=== PATIENT | male | born 1930 | race African-American/Black ===

== ENCOUNTER 2018-04-08 09:17 | Inpatient (IN) ==
[2018-04-08 10:13] LABS: Basophils % 0.4 % (0.0-0.8); Eosinophils % 0.1 % (0.00-10.9); Hematocrit 29.1 VOL% (42.0-52.0); Hemoglobin 9.3 GM/DL (14.0-18.0); Immature Granulocytes % 0.4 %; Immature Granulocytes Absolute 0.03 #; Lymphocytes # 0.8 10*3/uL (1.4-4.0); Mean Corpuscular Hemoglobin 28 PG (27-34); Mean Corpuscular Volume 86.4 FL (87-102); Monocytes # 0.9 10*3/uL (0.11-0.8); Monocytes % 11.5 % (1.7-12.7); Neutrophils % 77.6 % (38.7-73.9); Platelet Count 155 T/CUMM (130-400); Red Blood Count 3.37 MC/CUMM (3.8-5.5); Red Cell Distribution Width 16.6 % (9.3-17.3); White Blood Count 7.7 T/CUMM (4-12)
[2018-04-08 10:27] LABS: INR 1.2; PT Patient Result 12.4 SECS; Partial Thromboplastin Time 29.1 SECS (0-40)
[2018-04-08 10:42] LABS: Albumin 3.2 G/DL (3.4-5.0); Bilirubin,Total 0.8 MG/DL (0.2-1.0); Calcium 8.7 MG/DL (8.5-10.1); Osmolality,Calculated 297.5 MOS/KG (273-304); Potassium 5.5 MMOL/L (3.5-5.1); Total Protein 8.2 G/DL (6.4-8.3)
[2018-04-08] MEDS ORDERED: ASPIRIN 325 MG TABLET PO STA (11:00)
[2018-04-08] MEDS ORDERED: NITROGLYCERIN 2% OINT 1 INCH/GM PACK TOP STA (11:00)
[2018-04-08] MEDS ORDERED: ENOXAPARIN 100 MG/ML SYRINGE SUBCUT STA (11:00)
[2018-04-08] MEDS ORDERED: MORPHINE 4 MG/1 ML VIAL IV PRN (12:20)
[2018-04-08] MEDS ORDERED: MAGNESIUM SULF RIDER 4 GM in PREMIX 1 EACH IV PRN (12:21)
[2018-04-08] MEDS ORDERED: DOCUSATE SODIUM 100 MG CAPSULE PO PRN (12:21)
[2018-04-08] MEDS ORDERED: ONDANSETRON 4 MG/2 ML VIAL IV PRN ×2 (12:21→14:20)
[2018-04-08] MEDS ORDERED: ACETAMINOPHEN 325 MG TABLET PO PRN (12:21)
[2018-04-08] MEDS ORDERED: MAGNESIUM SULF RIDER 2 GM in PREMIX 1 EACH IV PRN (12:21)
[2018-04-08] MEDS: FUROSEMIDE 40 MG/4 ML VIAL IV SCH (15:36)
[2018-04-08] MEDS: cefTRIAXone 1,000 MG in SYRINGE 1 EACH IV SCH (15:54)
[2018-04-08] MEDS: hydrALAZINE 10 MG TABLET PO SCH ×2 (16:12→21:19)
[2018-04-08] MEDS: PANTOPRAZOLE 40 MG TABLET PO SCH (16:12)
[2018-04-08] MEDS: NITROGLYCERIN 2% OINT 1 INCH/GM PACK TOP SCH (17:39)
[2018-04-08] MEDS ORDERED: DOCUSATE SODIUM 100 MG CAPSULE PO SCH (21:00)
[2018-04-08] MEDS: ATORVASTATIN 40 MG TABLET PO SCH (21:19)
[2018-04-08] MEDS: CLOPIDOGREL 75 MG TABLET PO SCH (21:19)
[2018-04-08] MEDS: CARVEDILOL 6.25 MG TABLET PO SCH (21:19)
[2018-04-09] MEDS: NITROGLYCERIN 2% OINT 1 INCH/GM PACK TOP SCH ×4 (01:16→17:35)
[2018-04-09 04:15] LABS: Basophils % 0.4 % (0.0-0.8); Eosinophils % 0.3 % (0.00-10.9); Hematocrit 27.2 VOL% (42.0-52.0); Hemoglobin 8.4 GM/DL (14.0-18.0); Immature Granulocytes % 0.5 %; Immature Granulocytes Absolute 0.04 #; Lymphocytes # 0.8 10*3/uL (1.4-4.0); Lymphocytes % 9.9 % (21.2-54.2); Mean Corpuscular HGB Conc 30.9 GM/DL (32-36); Mean Corpuscular Hemoglobin 27 PG (27-34); Mean Corpuscular Volume 86.1 FL (87-102); Mean Platelet Volume 10.9 FL (9.6-12.0); Monocytes % 12.3 % (1.7-12.7); Neutrophils % 76.6 % (38.7-73.9); Platelet Count 128 T/CUMM (130-400); Red Blood Count 3.16 MC/CUMM (3.8-5.5); Red Cell Distribution Width 16.2 % (9.3-17.3); White Blood Count 7.8 T/CUMM (4-12)
[2018-04-09 04:34] LABS: Calcium 8.2 MG/DL (8.5-10.1); Osmolality,Calculated 304.1 MOS/KG (273-304); Potassium 4.6 MMOL/L (3.5-5.1)
[2018-04-09] MEDS: ISOSORBIDE MONONITRATE 60 MG TABLET PO SCH (08:56)
[2018-04-09] MEDS: FUROSEMIDE 40 MG/4 ML VIAL IV SCH ×2 (08:56→15:42)
[2018-04-09] MEDS: hydrALAZINE 10 MG TABLET PO SCH ×3 (08:57→21:15)
[2018-04-09] MEDS: PANTOPRAZOLE 40 MG TABLET PO SCH (08:57)
[2018-04-09] MEDS: ASPIRIN EC 81 MG TABLET PO SCH (08:57)
[2018-04-09] MEDS: CARVEDILOL 6.25 MG TABLET PO SCH ×2 (08:57→21:15)
[2018-04-09] MEDS ORDERED: PANTOPRAZOLE 40 MG TABLET PO SCH (09:00)
[2018-04-09] MEDS: ENOXAPARIN 60 MG/0.6 ML SYRINGE SUBCUT SCH (11:57)
[2018-04-09] MEDS: cefTRIAXone 1,000 MG in SYRINGE 1 EACH IV SCH (15:45)
[2018-04-09] MEDS: ATORVASTATIN 40 MG TABLET PO SCH (21:15)
[2018-04-09] MEDS: CLOPIDOGREL 75 MG TABLET PO SCH (21:15)
[2018-04-10] MEDS: NITROGLYCERIN 2% OINT 1 INCH/GM PACK TOP SCH ×2 (01:17→05:00)
[2018-04-10 02:45] LABS: Basophils % 0.3 % (0.0-0.8); Eosinophils # 0.1 10*3/uL (0.0-0.87); Eosinophils % 1.9 % (0.00-10.9); Hematocrit 24.6 VOL% (42.0-52.0); Hemoglobin 7.8 GM/DL (14.0-18.0); Immature Granulocytes % 0.3 %; Immature Granulocytes Absolute 0.02 #; Lymphocytes # 0.8 10*3/uL (1.4-4.0); Lymphocytes % 14.3 % (21.2-54.2); Mean Corpuscular HGB Conc 31.7 GM/DL (32-36); Mean Corpuscular Hemoglobin 27 PG (27-34); Mean Corpuscular Volume 85.4 FL (87-102); Mean Platelet Volume 11.1 FL (9.6-12.0); Monocytes # 0.9 10*3/uL (0.11-0.8); Monocytes % 15.5 % (1.7-12.7); Neutrophils # 3.9 10*3/uL (1.4-7.4); Neutrophils % 67.7 % (38.7-73.9); Platelet Count 117 T/CUMM (130-400); Red Blood Count 2.88 MC/CUMM (3.8-5.5); Red Cell Distribution Width 15.9 % (9.3-17.3); White Blood Count 5.8 T/CUMM (4-12)
[2018-04-10 03:02] LABS: Calcium 8.1 MG/DL (8.5-10.1); Osmolality,Calculated 300.5 MOS/KG (273-304); Potassium 4.2 MMOL/L (3.5-5.1)
[2018-04-10] MEDS: ACETAMINOPHEN 325 MG TABLET PO PRN ×2 (03:45→14:28)
[2018-04-10] MEDS: ISOSORBIDE MONONITRATE 60 MG TABLET PO SCH (09:05)
[2018-04-10] MEDS: CARVEDILOL 6.25 MG TABLET PO SCH ×2 (09:05→20:21)
[2018-04-10] MEDS: PANTOPRAZOLE 40 MG TABLET PO SCH (09:05)
[2018-04-10] MEDS: ASPIRIN EC 81 MG TABLET PO SCH (09:05)
[2018-04-10] MEDS: hydrALAZINE 10 MG TABLET PO SCH (09:06)
[2018-04-10] MEDS: FUROSEMIDE 40 MG/4 ML VIAL IV SCH (09:06)
[2018-04-10] MEDS ORDERED: hydrALAZINE 10 MG TABLET PO SCH (11:00)
[2018-04-10] MEDS: ENOXAPARIN 60 MG/0.6 ML SYRINGE SUBCUT SCH (11:03)
[2018-04-10] MEDS ORDERED: SODIUM CHLORIDE 0.9% 1,000 ML IV PRN (11:16)
[2018-04-10] MEDS ORDERED: FUROSEMIDE 40 MG/4 ML VIAL IV ONE (11:19)
[2018-04-10 11:39] LABS: % Iron Saturation 13.9 % (18-50)
[2018-04-10] MEDS: cefTRIAXone 1,000 MG in SYRINGE 1 EACH IV SCH (16:34)
[2018-04-10] MEDS: CLOPIDOGREL 75 MG TABLET PO SCH (20:21)
[2018-04-10] MEDS: ATORVASTATIN 40 MG TABLET PO SCH (20:21)
[2018-04-11 04:12] LABS: Basophils % 0.6 % (0.0-0.8); Eosinophils # 0.2 10*3/uL (0.0-0.87); Eosinophils % 5.1 % (0.00-10.9); Hemoglobin 8.7 GM/DL (14.0-18.0); Immature Granulocytes % 0.4 %; Immature Granulocytes Absolute 0.02 #; Lymphocytes # 0.8 10*3/uL (1.4-4.0); Lymphocytes % 15.9 % (21.2-54.2); Mean Corpuscular HGB Conc 32.2 GM/DL (32-36); Mean Corpuscular Hemoglobin 27 PG (27-34); Mean Corpuscular Volume 83.6 FL (87-102); Mean Platelet Volume 11.5 FL (9.6-12.0); Monocytes # 0.8 10*3/uL (0.11-0.8); Monocytes % 16.1 % (1.7-12.7); Neutrophils # 2.9 10*3/uL (1.4-7.4); Neutrophils % 61.9 % (38.7-73.9); Platelet Count 127 T/CUMM (130-400); Red Blood Count 3.23 MC/CUMM (3.8-5.5); Red Cell Distribution Width 16.6 % (9.3-17.3); White Blood Count 4.7 T/CUMM (4-12)
[2018-04-11 04:43] LABS: Osmolality,Calculated 299.7 MOS/KG (273-304); Potassium 4.1 MMOL/L (3.5-5.1)
[2018-04-11 04:59] LABS: Eosinophils 2 % (0-10); Lymphocytes 14 % (20-55); Platelet Estimate Decreased; Polychromasia Few; Segmented Neutrophils 76 % (50-85); Total Cells Counted 100
[2018-04-11] MEDS: ISOSORBIDE MONONITRATE 60 MG TABLET PO SCH (08:43)
[2018-04-11] MEDS: ASPIRIN EC 81 MG TABLET PO SCH (08:43)
[2018-04-11] MEDS: PANTOPRAZOLE 40 MG TABLET PO SCH (08:44)
[2018-04-11] MEDS: CARVEDILOL 6.25 MG TABLET PO SCH ×2 (08:44→22:04)
[2018-04-11] MEDS: ENOXAPARIN 30 MG/0.3 ML SYRINGE SUBCUT SCH (11:35)
[2018-04-11] MEDS: cefTRIAXone 1,000 MG in SYRINGE 1 EACH IV SCH (14:54)
[2018-04-11] MEDS: ATORVASTATIN 40 MG TABLET PO SCH (22:04)
[2018-04-11] MEDS: CLOPIDOGREL 75 MG TABLET PO SCH (22:04)
[2018-04-12 04:38] LABS: Basophils % 0.5 % (0.0-0.8); Eosinophils # 0.2 10*3/uL (0.0-0.87); Hematocrit 27.4 VOL% (42.0-52.0); Hemoglobin 8.7 GM/DL (14.0-18.0); Immature Granulocytes % 0.3 %; Immature Granulocytes Absolute 0.01 #; Lymphocytes # 0.9 10*3/uL (1.4-4.0); Lymphocytes % 22.3 % (21.2-54.2); Mean Corpuscular HGB Conc 31.8 GM/DL (32-36); Mean Corpuscular Hemoglobin 26 PG (27-34); Mean Corpuscular Volume 82.8 FL (87-102); Mean Platelet Volume 10.8 FL (9.6-12.0); Monocytes # 0.7 10*3/uL (0.11-0.8); Monocytes % 18.5 % (1.7-12.7); Neutrophils # 2.2 10*3/uL (1.4-7.4); Neutrophils % 54.4 % (38.7-73.9); Platelet Count 129 T/CUMM (130-400); Red Blood Count 3.31 MC/CUMM (3.8-5.5); Red Cell Distribution Width 15.9 % (9.3-17.3)
[2018-04-12 05:08] LABS: Calcium 8.1 MG/DL (8.5-10.1); Osmolality,Calculated 293.8 MOS/KG (273-304); Potassium 4.4 MMOL/L (3.5-5.1)
[2018-04-12 05:25] LABS: Eosinophils 5 % (0-10); Hypochromasia 1+; Lymphocytes 20 % (20-55); Platelet Estimate Decreased; Segmented Neutrophils 61 % (50-85); Total Cells Counted 100
[2018-04-12] MEDS: ISOSORBIDE MONONITRATE 60 MG TABLET PO SCH (08:34)
[2018-04-12] MEDS: ASPIRIN EC 81 MG TABLET PO SCH (08:34)
[2018-04-12] MEDS: PANTOPRAZOLE 40 MG TABLET PO SCH (08:35)
[2018-04-12] MEDS: CARVEDILOL 6.25 MG TABLET PO SCH ×2 (08:35→21:11)
[2018-04-12] MEDS: ENOXAPARIN 30 MG/0.3 ML SYRINGE SUBCUT SCH (11:17)
[2018-04-12] MEDS: cefTRIAXone 1,000 MG in SYRINGE 1 EACH IV SCH (14:36)
[2018-04-12] MEDS: ATORVASTATIN 40 MG TABLET PO SCH (21:11)
[2018-04-12] MEDS: CLOPIDOGREL 75 MG TABLET PO SCH (21:11)
[2018-04-13 02:16] LABS: Calcium 8.2 MG/DL (8.5-10.1); Osmolality,Calculated 294.7 MOS/KG (273-304); Potassium 4.5 MMOL/L (3.5-5.1)
[2018-04-13] MEDS: CARVEDILOL 6.25 MG TABLET PO SCH (09:18)
[2018-04-13] MEDS: ISOSORBIDE MONONITRATE 60 MG TABLET PO SCH (09:18)
[2018-04-13] MEDS: ASPIRIN EC 81 MG TABLET PO SCH (09:18)
[2018-04-13] MEDS: PANTOPRAZOLE 40 MG TABLET PO SCH (09:19)
[2018-04-13] MEDS: ENOXAPARIN 30 MG/0.3 ML SYRINGE SUBCUT SCH (12:01)
[2018-04-13 12:12] VITALS: BP 135/62
[2018-04-13] MEDS: cefTRIAXone 1,000 MG in SYRINGE 1 EACH IV SCH (14:06)
== END 2018-04-13 15:25 | disposition home health service (06) | DRG 280 ==
LOC: N.ED 09:17 → N.EDINP 14:20 → N.CC 14:49 → N.ICU 04-09 16:14 → N.TELEN 04-11 17:19
PROVIDERS: ADMIT Family Medicine; ATTEND Family Medicine

== ENCOUNTER 2018-11-18 12:11 | Inpatient (IN) ==
[2018-11-18 13:30] LABS: Basophils % 0.5 % (0.0-0.8); Eosinophils # 0.1 10*3/uL (0.0-0.87); Eosinophils % 1.9 % (0.00-10.9); Hematocrit 32.4 VOL% (42.0-52.0); Hemoglobin 10.1 GM/DL (14.0-18.0); Immature Granulocytes % 0.5 %; Immature Granulocytes Absolute 0.03 #; Lymphocytes % 18.4 % (21.2-54.2); Mean Corpuscular HGB Conc 31.2 GM/DL (32-36); Mean Corpuscular Volume 83.5 FL (87-102); Mean Platelet Volume 10.4 FL (9.6-12.0); Monocytes % 9.5 % (1.7-12.7); Neutrophils % 69.2 % (38.7-73.9); Platelet Count 145 T/CUMM (130-400); Red Blood Count 3.88 MC/CUMM (3.8-5.5); Red Cell Distribution Width 15.5 % (9.3-17.3); White Blood Count 5.7 T/CUMM (4-12)
[2018-11-18 13:38] LABS: INR 1.1; PT Patient Result 11.9 SECS; Partial Thromboplastin Time 30.1 SECS (0-40)
[2018-11-18 13:52] LABS: Alanine Aminotransferase 44 U/L (16-61); Albumin 3.3 G/DL (3.4-5.0); Alkaline Phosphatase 94 U/L (45-117); Aspartate Amino Transferase 35 U/L (0-37); Blood Urea Nitrogen 41 MG/DL (7-18); Glucose 94 MG/DL (74-106); Osmolality,Calculated 284.7 MOS/KG (273-304); Total Protein 8.9 G/DL (6.4-8.3); Troponin I 0.015 NG/ML (0.00-0.045)
[2018-11-18] MEDS ORDERED: ZALEPLON 5 MG CAPSULE PO PRN (17:11)
[2018-11-18] MEDS ORDERED: ALBUTEROL 2.5 MG/3 ML NEB RESP TX PRN (17:11)
[2018-11-18] MEDS ORDERED: ONDANSETRON 4 MG/2 ML VIAL IV PRN (17:11)
[2018-11-18] MEDS ORDERED: MAGNESIUM SULF RIDER 2 GM in PREMIX 1 EACH IV PRN (17:11)
[2018-11-18] MEDS ORDERED: MAGNESIUM SULF RIDER 4 GM in PREMIX 1 EACH IV PRN (17:11)
[2018-11-18] MEDS ORDERED: guaiFENesin/DM ER 600-30 MG TABLET PO PRN (17:11)
[2018-11-18] MEDS ORDERED: diphenhydrAMINE CAP 25 MG CAPSULE PO PRN (17:11)
[2018-11-18] MEDS ORDERED: ACETAMINOPHEN 325 MG TABLET PO PRN (17:11)
[2018-11-18] MEDS: cefTRIAXone 1,000 MG in SYRINGE 1 EACH IV SCH (19:17)
[2018-11-18] MEDS: HEPARIN 5,000 UNIT/1 ML VIAL SUBCUT SCH (19:19)
[2018-11-18] MEDS: FUROSEMIDE 40 MG/4 ML VIAL IV SCH (19:43)
[2018-11-18] MEDS: ALBUTEROL/IPRATROPIUM 3 ML NEB RESP TX SCH (20:38)
[2018-11-18] MEDS: ATORVASTATIN 40 MG TABLET PO SCH (21:14)
[2018-11-18] MEDS: CARVEDILOL 6.25 MG TABLET PO SCH (21:14)
[2018-11-18] MEDS: amLODIPine 5 MG TABLET PO SCH (21:14)
[2018-11-19 00:55] LABS: Basophils % 0.4 % (0.0-0.8); Eosinophils # 0.2 10*3/uL (0.0-0.87); Eosinophils % 2.9 % (0.00-10.9); Hematocrit 31.2 VOL% (42.0-52.0); Hemoglobin 9.7 GM/DL (14.0-18.0); Immature Granulocytes % 0.4 %; Immature Granulocytes Absolute 0.02 #; Lymphocytes % 19.9 % (21.2-54.2); Mean Corpuscular HGB Conc 31.1 GM/DL (32-36); Mean Corpuscular Volume 82.5 FL (87-102); Mean Platelet Volume 10.1 FL (9.6-12.0); Neutrophils % 64.4 % (38.7-73.9); Platelet Count 138 T/CUMM (130-400); Red Blood Count 3.78 MC/CUMM (3.8-5.5); Red Cell Distribution Width 15.1 % (9.3-17.3); White Blood Count 5.2 T/CUMM (4-12)
[2018-11-19 01:10] LABS: Bilirubin,Total 0.5 MG/DL (0.2-1.0); Calcium 8.8 MG/DL (8.5-10.1); Osmolality,Calculated 284.8 MOS/KG (273-304); Risk Ratio 1.53; Total Protein 8.8 G/DL (6.4-8.3)
[2018-11-19] MEDS: ALBUTEROL/IPRATROPIUM 3 ML NEB RESP TX SCH ×4 (01:18→18:58)
[2018-11-19] MEDS: HEPARIN 5,000 UNIT/1 ML VIAL SUBCUT SCH ×3 (02:20→16:56)
[2018-11-19] MEDS ORDERED: FUROSEMIDE 40 MG/4 ML VIAL IV SCH (08:00)
[2018-11-19] MEDS: ISOSORBIDE MONONITRATE 60 MG TABLET PO SCH (09:56)
[2018-11-19] MEDS: BISACODYL 5 MG TABLET PO SCH (09:56)
[2018-11-19] MEDS: ASPIRIN EC 81 MG TABLET PO SCH (09:56)
[2018-11-19] MEDS: PANTOPRAZOLE 40 MG TABLET PO SCH (09:56)
[2018-11-19] MEDS: CARVEDILOL 6.25 MG TABLET PO SCH ×2 (09:56→20:46)
[2018-11-19] MEDS: CLOPIDOGREL 75 MG TABLET PO SCH (09:56)
[2018-11-19] MEDS: FUROSEMIDE 40 MG/4 ML VIAL IV SCH ×2 (09:57→16:56)
[2018-11-19] MEDS: cefTRIAXone 1,000 MG in SYRINGE 1 EACH IV SCH (16:59)
[2018-11-19] MEDS: ATORVASTATIN 40 MG TABLET PO SCH (20:46)
[2018-11-19] MEDS: amLODIPine 5 MG TABLET PO SCH (20:46)
[2018-11-20] MEDS: ALBUTEROL/IPRATROPIUM 3 ML NEB RESP TX SCH ×4 (00:45→20:06)
[2018-11-20] MEDS: HEPARIN 5,000 UNIT/1 ML VIAL SUBCUT SCH ×3 (02:12→18:09)
[2018-11-20 05:58] LABS: Basophils % 0.4 % (0.0-0.8); Eosinophils # 0.2 10*3/uL (0.0-0.87); Eosinophils % 3.3 % (0.00-10.9); Hematocrit 31.1 VOL% (42.0-52.0); Hemoglobin 9.8 GM/DL (14.0-18.0); Immature Granulocytes % 0.4 %; Immature Granulocytes Absolute 0.02 #; Lymphocytes % 20.2 % (21.2-54.2); Mean Corpuscular HGB Conc 31.5 GM/DL (32-36); Mean Corpuscular Volume 81.6 FL (87-102); Mean Platelet Volume 10.3 FL (9.6-12.0); Monocytes % 15.1 % (1.7-12.7); Neutrophils % 60.6 % (38.7-73.9); Platelet Count 135 T/CUMM (130-400); Red Blood Count 3.81 MC/CUMM (3.8-5.5); Red Cell Distribution Width 15.2 % (9.3-17.3); White Blood Count 4.9 T/CUMM (4-12)
[2018-11-20 06:20] LABS: Albumin 2.9 G/DL (3.4-5.0); Bilirubin,Total 0.6 MG/DL (0.2-1.0); Calcium 8.6 MG/DL (8.5-10.1); Osmolality,Calculated 283.2 MOS/KG (273-304); Total Protein 8.3 G/DL (6.4-8.3)
[2018-11-20] MEDS: FUROSEMIDE 40 MG/4 ML VIAL IV SCH ×2 (08:35→16:43)
[2018-11-20] MEDS: ISOSORBIDE MONONITRATE 60 MG TABLET PO SCH (08:36)
[2018-11-20] MEDS: MULTIVITAMIN (BEROCCA) TABLET PO SCH (08:36)
[2018-11-20] MEDS: ASPIRIN EC 81 MG TABLET PO SCH (08:36)
[2018-11-20] MEDS: BISACODYL 5 MG TABLET PO SCH (08:36)
[2018-11-20] MEDS: CLOPIDOGREL 75 MG TABLET PO SCH (08:36)
[2018-11-20] MEDS: CARVEDILOL 6.25 MG TABLET PO SCH ×2 (08:36→22:59)
[2018-11-20] MEDS: PANTOPRAZOLE 40 MG TABLET PO SCH (09:18)
[2018-11-20] MEDS: hydrALAZINE 25 MG TABLET PO SCH ×2 (16:42→23:00)
[2018-11-20] MEDS: cefTRIAXone 1,000 MG in SYRINGE 1 EACH IV SCH (18:09)
[2018-11-20] MEDS: ATORVASTATIN 40 MG TABLET PO SCH (23:00)
[2018-11-21] MEDS: ALBUTEROL/IPRATROPIUM 3 ML NEB RESP TX SCH ×4 (01:42→19:40)
[2018-11-21] MEDS: HEPARIN 5,000 UNIT/1 ML VIAL SUBCUT SCH ×3 (02:57→18:09)
[2018-11-21 04:42] LABS: Basophils % 0.4 % (0.0-0.8); Calcium 8.9 MG/DL (8.5-10.1); Eosinophils # 0.1 10*3/uL (0.0-0.87); Eosinophils % 2.8 % (0.00-10.9); Hematocrit 31.1 VOL% (42.0-52.0); Immature Granulocytes % 0.2 %; Immature Granulocytes Absolute 0.01 #; Lymphocytes # 1.2 10*3/uL (1.4-4.0); Lymphocytes % 24.6 % (21.2-54.2); Mean Corpuscular HGB Conc 32.2 GM/DL (32-36); Mean Corpuscular Volume 81.6 FL (87-102); Mean Platelet Volume 11.1 FL (9.6-12.0); Monocytes % 15.5 % (1.7-12.7); Neutrophils % 56.5 % (38.7-73.9); Osmolality,Calculated 290.2 MOS/KG (273-304); Platelet Count 156 T/CUMM (130-400); Red Blood Count 3.81 MC/CUMM (3.8-5.5); White Blood Count 4.7 T/CUMM (4-12)
[2018-11-21] MEDS: CARVEDILOL 6.25 MG TABLET PO SCH ×2 (09:33→21:16)
[2018-11-21] MEDS: PANTOPRAZOLE 40 MG TABLET PO SCH (09:33)
[2018-11-21] MEDS: ISOSORBIDE MONONITRATE 60 MG TABLET PO SCH (09:33)
[2018-11-21] MEDS: BISACODYL 5 MG TABLET PO SCH (09:33)
[2018-11-21] MEDS: hydrALAZINE 25 MG TABLET PO SCH ×3 (09:33→21:15)
[2018-11-21] MEDS: CLOPIDOGREL 75 MG TABLET PO SCH (09:33)
[2018-11-21] MEDS: MULTIVITAMIN (BEROCCA) TABLET PO SCH (09:33)
[2018-11-21] MEDS: FUROSEMIDE 20 MG TABLET PO SCH (09:33)
[2018-11-21] MEDS: ASPIRIN EC 81 MG TABLET PO SCH (09:33)
[2018-11-21] MEDS ORDERED: AZITHROMYCIN 250 MG TABLET PO SCH (17:15)
[2018-11-21] MEDS: cefTRIAXone 1,000 MG in SYRINGE 1 EACH IV SCH (18:09)
[2018-11-21] MEDS: ATORVASTATIN 40 MG TABLET PO SCH (21:16)
[2018-11-22] MEDS: ALBUTEROL/IPRATROPIUM 3 ML NEB RESP TX SCH ×2 (00:34→07:55)
[2018-11-22] MEDS: HEPARIN 5,000 UNIT/1 ML VIAL SUBCUT SCH ×2 (02:38→09:28)
[2018-11-22 04:45] LABS: Basophils % 0.6 % (0.0-0.8); Eosinophils # 0.1 10*3/uL (0.0-0.87); Hematocrit 31.5 VOL% (42.0-52.0); Hemoglobin 10.1 GM/DL (14.0-18.0); Immature Granulocytes % 0.2 %; Immature Granulocytes Absolute 0.01 #; Lymphocytes % 20.1 % (21.2-54.2); Mean Corpuscular HGB Conc 32.1 GM/DL (32-36); Mean Corpuscular Volume 81.6 FL (87-102); Mean Platelet Volume 10.7 FL (9.6-12.0); Monocytes % 15.2 % (1.7-12.7); Neutrophils % 60.9 % (38.7-73.9); Platelet Count 158 T/CUMM (130-400); Red Blood Count 3.86 MC/CUMM (3.8-5.5); Red Cell Distribution Width 15.2 % (9.3-17.3); White Blood Count 4.7 T/CUMM (4-12)
[2018-11-22 05:14] LABS: Calcium 8.9 MG/DL (8.5-10.1); Osmolality,Calculated 291.1 MOS/KG (273-304)
[2018-11-22] MEDS: FUROSEMIDE 20 MG TABLET PO SCH (09:27)
[2018-11-22] MEDS: BISACODYL 5 MG TABLET PO SCH (09:27)
[2018-11-22] MEDS: MULTIVITAMIN (BEROCCA) TABLET PO SCH (09:27)
[2018-11-22] MEDS: ISOSORBIDE MONONITRATE 60 MG TABLET PO SCH (09:27)
[2018-11-22] MEDS: PANTOPRAZOLE 40 MG TABLET PO SCH (09:27)
[2018-11-22] MEDS: CLOPIDOGREL 75 MG TABLET PO SCH (09:27)
[2018-11-22] MEDS: CARVEDILOL 6.25 MG TABLET PO SCH (09:28)
[2018-11-22] MEDS: ASPIRIN EC 81 MG TABLET PO SCH (09:28)
[2018-11-22] MEDS: hydrALAZINE 25 MG TABLET PO SCH (09:28)
[2018-11-22 12:12] VITALS: BP 113/62
== END 2018-11-22 13:40 | disposition home health service (06) | DRG 291 ==
LOC: N.ED 12:11 → N.EDINP 12:11 → N.TELEN 17:30
PROVIDERS: ADMIT Hospitalist; ATTEND Hospitalist

== ENCOUNTER 2019-04-05 11:16 | Observation (INO) ==
[2019-04-05 12:00] LABS: Basophils % 0.7 % (0.0-0.8); Eosinophils # 0.1 10*3/uL (0.0-0.87); Eosinophils % 2.1 % (0.00-10.9); Hematocrit 31.7 VOL% (42.0-52.0); Hemoglobin 10.1 GM/DL (14.0-18.0); Immature Granulocytes % 0.2 %; Immature Granulocytes Absolute 0.01 #; Lymphocytes # 1.2 10*3/uL (1.4-4.0); Lymphocytes % 28.1 % (21.2-54.2); Mean Corpuscular HGB Conc 31.9 GM/DL (32-36); Mean Corpuscular Volume 85.7 FL (87-102); Mean Platelet Volume 10.3 FL (9.6-12.0); Neutrophils % 59.9 % (38.7-73.9); Platelet Count 116 T/CUMM (130-400); Red Cell Distribution Width 14.7 % (9.3-17.3); White Blood Count 4.2 T/CUMM (4-12)
[2019-04-05 12:30] LABS: Albumin 3.5 G/DL (3.4-5.0); Bilirubin,Total 0.7 MG/DL (0.2-1.0); Calcium 8.9 MG/DL (8.5-10.1); Osmolality,Calculated 298.8 MOS/KG (273-304); Total Protein 8.3 G/DL (6.4-8.3)
[2019-04-05] MEDS ORDERED: SODIUM CHLORIDE 0.9% 500 ML IV STA (13:04)
[2019-04-05] MEDS ORDERED: ACETAMINOPHEN 325 MG TABLET PO PRN (13:41)
[2019-04-05] MEDS ORDERED: DOCUSATE SODIUM 100 MG CAPSULE PO PRN (13:41)
[2019-04-05] MEDS ORDERED: ONDANSETRON 4 MG/2 ML VIAL IV PRN (13:41)
[2019-04-05] MEDS ORDERED: SODIUM CHLORIDE 0.9% 1,000 ML IV SCH (14:00)
[2019-04-05 14:17] LABS: Thyroid Stimulating Hormone 1.95 uIU/ml (0.358-3.74)
[2019-04-05] MEDS: hydrALAZINE 25 MG TABLET PO SCH ×2 (15:15→20:11)
[2019-04-05] MEDS: SODIUM CHLORIDE 0.9% 1,000 ML IV SCH ×2 (15:30→22:43)
[2019-04-05 18:57] LABS: Apearance,Urine CLEAR (Clear); Bilirubin,Urine Negative (Negative); Blood, Urine Negative (Negative); Glucose,Urine (UA) Negative (Negative); Hyaline Casts,Urine 3 /LPF (0-3); Ketones,Urine Negative (Negative); Mucus,Urine Occasional /LPF (Occasional); Nitrite,Urine Negative (Negative); Protein,Urine Negative; RBC,Urine 4 /HPF (0-4); Squamous Epithelial Cell,Urine Occasional /HPF (0-10); Urine Color Yellow (Yellow); Urine Specific Gravity 1.006 (1.001-1.035); Urine Urobilinogen < 2.0 EU/DL (0.2-1.0); WBC,Urine <1 /HPF (0-6)
[2019-04-05] MEDS: ENALAPRIL 5 MG TABLET PO SCH (20:10)
[2019-04-05] MEDS: MEGESTROL 40 MG TABLET PO SCH (20:11)
[2019-04-05] MEDS: CARVEDILOL 6.25 MG TABLET PO SCH (20:11)
[2019-04-05] MEDS ORDERED: ATORVASTATIN 40 MG TABLET PO SCH (21:00)
[2019-04-06] MEDS: SODIUM CHLORIDE 0.9% 1,000 ML IV SCH ×2 (05:23→12:02)
[2019-04-06 05:48] LABS: Basophils % 0.6 % (0.0-0.8); Eosinophils # 0.1 10*3/uL (0.0-0.87); Eosinophils % 3.1 % (0.00-10.9); Hematocrit 27.2 VOL% (42.0-52.0); Hemoglobin 8.7 GM/DL (14.0-18.0); Immature Granulocytes % 0.3 %; Immature Granulocytes Absolute 0.01 #; Lymphocytes % 29.7 % (21.2-54.2); Mean Platelet Volume 10.9 FL (9.6-12.0); Monocytes % 11.1 % (1.7-12.7); Neutrophils % 55.2 % (38.7-73.9); Platelet Count 104 T/CUMM (130-400); Red Cell Distribution Width 14.6 % (9.3-17.3); White Blood Count 3.5 T/CUMM (4-12)
[2019-04-06 06:05] LABS: Calcium 8.2 MG/DL (8.5-10.1); Osmolality,Calculated 300.1 MOS/KG (273-304)
[2019-04-06] MEDS ORDERED: LORATADINE 10 MG TABLET PO SCH (09:00)
[2019-04-06] MEDS ORDERED: ISOSORBIDE MONONITRATE 60 MG TABLET PO SCH (09:00)
[2019-04-06] MEDS ORDERED: PANTOPRAZOLE 40 MG TABLET PO SCH (09:00)
[2019-04-06] MEDS ORDERED: FUROSEMIDE 20 MG TABLET PO SCH (09:00)
[2019-04-06] MEDS ORDERED: FLUTICASONE 50 MCG NASAL SPRAY 16 GM BOTTLE BOTH NARES SCH (09:00)
[2019-04-06] MEDS ORDERED: ASPIRIN EC 81 MG TABLET PO SCH (09:00)
[2019-04-06] MEDS ORDERED: CLOPIDOGREL 75 MG TABLET PO SCH (09:00)
[2019-04-06] MEDS: CARVEDILOL 6.25 MG TABLET PO SCH (09:51)
[2019-04-06] MEDS: MEGESTROL 40 MG TABLET PO SCH (09:53)
[2019-04-06] MEDS: hydrALAZINE 25 MG TABLET PO SCH (09:54)
[2019-04-06] MEDS: ENALAPRIL 5 MG TABLET PO SCH (09:54)
[2019-04-06 15:56] VITALS: BP 122/55
== END 2019-04-06 16:28 | disposition home or self-care (01) ==
LOC: N.ED 11:16 → INTOOBSV 13:21 → N.EDINP 13:21 → N.5E 14:27
PROVIDERS: ADMIT Emergency Medicine; ATTEND Emergency Medicine

== ENCOUNTER 2019-09-27 14:08 | Observation (INO) ==
[2019-09-27] MEDS ORDERED: SODIUM CHLORIDE 0.9% 1,000 ML IV STA ×2 (14:32→15:29)
[2019-09-27 14:50] LABS: Eosinophils # 0.1 10*3/uL (0.0-0.87); Eosinophils % 1.7 % (0.00-10.9); Hematocrit 30.7 VOL% (42.0-52.0); Immature Granulocytes % 0.5 %; Immature Granulocytes Absolute 0.02 #; Lymphocytes # 1.1 10*3/uL (1.4-4.0); Lymphocytes % 27.3 % (21.2-54.2); Mean Corpuscular HGB Conc 32.6 GM/DL (32-36); Mean Corpuscular Volume 83.4 FL (87-102); Mean Platelet Volume 10.8 FL (9.6-12.0); Monocytes % 13.1 % (1.7-12.7); Neutrophils % 56.4 % (38.7-73.9); Platelet Count 164 T/CUMM (130-400); Red Blood Count 3.68 MC/CUMM (3.8-5.5); Red Cell Distribution Width 14.4 % (9.3-17.3); White Blood Count 4.1 T/CUMM (4-12)
[2019-09-27 15:00] LABS: INR 1.1; PT Patient Result 11.9 SECS (9.8-11.9)
[2019-09-27 15:20] LABS: Bilirubin,Total 0.7 MG/DL (0.2-1.0); Osmolality,Calculated 289.2 MOS/KG (273-304)
[2019-09-27 15:36] LABS: Apearance,Urine Slightly Hazy (Clear); Bacteria,Urine Moderate /HPF (Few); Bilirubin,Urine Negative (Negative); Blood, Urine Negative (Negative); Glucose,Urine (UA) Negative (Negative); Ketones,Urine 5 mg/dL (Negative); Mucus,Urine Many /LPF (Occasional); Nitrite,Urine Negative (Negative); Protein,Urine 100 MG/DL; RBC,Urine 8 /HPF (0-4); Sperm,Urine Few /HPF (Negative); Urine Color Amber (Yellow); Urine Specific Gravity 1.032 (1.001-1.035); WBC,Urine 15 /HPF (0-6)
[2019-09-27] MEDS ORDERED: ONDANSETRON 4 MG/2 ML VIAL IV PRN (16:56)
[2019-09-27] MEDS ORDERED: GLUCAGON 1 MG VIAL IM PRN (16:56)
[2019-09-27] MEDS ORDERED: DEXTROSE 10% 250 ML BAG IV PRN (16:56)
[2019-09-27] MEDS ORDERED: ACETAMINOPHEN 325 MG TABLET PO PRN (16:56)
[2019-09-27] MEDS ORDERED: SODIUM CHLORIDE 0.9% 1,000 ML IV SCH (17:00)
[2019-09-27] MEDS ORDERED: SODIUM POLYSTYRENE SULFATE 15 GM/60 ML BOTTLE PO STA (18:50)
[2019-09-27] MEDS: cefTRIAXone 1,000 MG in SYRINGE 1 EACH IV SCH (18:51)
[2019-09-27] MEDS: ENOXAPARIN 30 MG/0.3 ML SYRINGE SUBCUT SCH (21:08)
[2019-09-27] MEDS: INSULIN REGULAR 100 UNIT/ML SUBCUT SCH (21:10)
[2019-09-28 07:03] LABS: Basophils % 0.8 % (0.0-0.8); Eosinophils # 0.1 10*3/uL (0.0-0.87); Eosinophils % 2.2 % (0.00-10.9); Hematocrit 29.7 VOL% (42.0-52.0); Hemoglobin 9.4 GM/DL (14.0-18.0); Immature Granulocytes % 0.3 %; Immature Granulocytes Absolute 0.01 #; Lymphocytes # 1.1 10*3/uL (1.4-4.0); Lymphocytes % 29.5 % (21.2-54.2); Mean Corpuscular HGB Conc 31.6 GM/DL (32-36); Mean Corpuscular Volume 85.8 FL (87-102); Mean Platelet Volume 9.9 FL (9.6-12.0); Monocytes % 10.7 % (1.7-12.7); Neutrophils % 56.5 % (38.7-73.9); Platelet Count 127 T/CUMM (130-400); Red Blood Count 3.46 MC/CUMM (3.8-5.5); Red Cell Distribution Width 14.6 % (9.3-17.3); White Blood Count 3.6 T/CUMM (4-12)
[2019-09-28 07:18] LABS: Albumin 2.8 G/DL (3.4-5.0); Bilirubin,Total 0.5 MG/DL (0.2-1.0); Calcium 8.2 MG/DL (8.5-10.1); Osmolality,Calculated 289.7 MOS/KG (273-304); Total Protein 7.6 G/DL (6.4-8.3)
[2019-09-28] MEDS: INSULIN REGULAR 100 UNIT/ML SUBCUT SCH ×4 (09:35→21:36)
[2019-09-28] MEDS: PANTOPRAZOLE 40 MG TABLET PO SCH (10:20)
[2019-09-28] MEDS: cefTRIAXone 1,000 MG in SYRINGE 1 EACH IV SCH (17:28)
[2019-09-28] MEDS ORDERED: ATORVASTATIN 40 MG TABLET PO SCH (21:00)
[2019-09-28] MEDS: ENOXAPARIN 30 MG/0.3 ML SYRINGE SUBCUT SCH (21:36)
[2019-09-29] MEDS: carvediloL 3.125 MG TABLET PO SCH ×2 (00:27→09:16)
[2019-09-29 06:28] LABS: Basophils % 1.2 % (0.0-0.8); Eosinophils # 0.1 10*3/uL (0.0-0.87); Hematocrit 26.2 VOL% (42.0-52.0); Hemoglobin 8.7 GM/DL (14.0-18.0); Immature Granulocytes % 0.3 %; Immature Granulocytes Absolute 0.01 #; Lymphocytes % 30.6 % (21.2-54.2); Mean Corpuscular HGB Conc 33.2 GM/DL (32-36); Mean Corpuscular Volume 83.7 FL (87-102); Mean Platelet Volume 10.3 FL (9.6-12.0); Monocytes % 11.6 % (1.7-12.7); Neutrophils % 53.3 % (38.7-73.9); Platelet Count 112 T/CUMM (130-400); Red Blood Count 3.13 MC/CUMM (3.8-5.5); Red Cell Distribution Width 14.6 % (9.3-17.3); White Blood Count 3.4 T/CUMM (4-12)
[2019-09-29] MEDS: INSULIN REGULAR 100 UNIT/ML SUBCUT SCH ×2 (08:34→10:57)
[2019-09-29] MEDS ORDERED: CLOPIDOGREL 75 MG TABLET PO SCH (09:00)
[2019-09-29] MEDS ORDERED: ISOSORBIDE MONONITRATE 30 MG TABLET PO SCH (09:00)
[2019-09-29] MEDS ORDERED: ISOSORBIDE MONONITRATE 60 MG TABLET PO SCH (09:00)
[2019-09-29] MEDS ORDERED: MULTIVITAMIN LIQUID (CENTRUM) 60 ML BOTTLE PO SCH (09:00)
[2019-09-29] MEDS ORDERED: ASPIRIN EC 81 MG TABLET PO SCH (09:00)
[2019-09-29] MEDS: PANTOPRAZOLE 40 MG TABLET PO SCH (09:15)
[2019-09-29 12:00] VITALS: BP 108/65
== END 2019-09-29 12:05 | disposition home or self-care (01) ==
LOC: N.EDINP 14:08 → N.ED 14:08 → N.TELEN 18:23
PROVIDERS: ADMIT Internal Medicine; ATTEND Internal Medicine

== ENCOUNTER 2019-10-20 17:55 | Inpatient (IN) ==
[2019-10-20 18:43] LABS: Basophils % 0.6 % (0.0-0.8); Hematocrit 27.7 VOL% (42.0-52.0); Hemoglobin 8.7 GM/DL (14.0-18.0); Immature Granulocytes % 0.4 %; Immature Granulocytes Absolute 0.02 #; Lymphocytes # 0.7 10*3/uL (1.4-4.0); Lymphocytes % 13.5 % (21.2-54.2); Mean Corpuscular HGB Conc 31.4 GM/DL (32-36); Mean Corpuscular Volume 88.2 FL (87-102); Mean Platelet Volume 10.6 FL (9.6-12.0); Monocytes % 9.4 % (1.7-12.7); Neutrophils % 76.1 % (38.7-73.9); Platelet Count 172 T/CUMM (130-400); Red Blood Count 3.14 MC/CUMM (3.8-5.5); Red Cell Distribution Width 17.7 % (9.3-17.3); White Blood Count 5.2 T/CUMM (4-12)
[2019-10-20 18:59] LABS: INR 1.2
[2019-10-20 19:00] LABS: Calcium 9.3 MG/DL (8.5-10.1)
[2019-10-20] MEDS ORDERED: SODIUM POLYSTYRENE SULFATE 15 GM/60 ML BOTTLE PO STA (19:09)
[2019-10-20] MEDS ORDERED: INSULIN REGULAR 100 UNIT/ML IV ONE (19:09)
[2019-10-20] MEDS ORDERED: SODIUM BICARBONATE 50 MEQ/50 ML VIAL IV STA (19:10)
[2019-10-20] MEDS ORDERED: DEXTROSE 50% 25 GM/50 ML VIAL IV STA (19:10)
[2019-10-20] MEDS ORDERED: DEXTROSE 50% 25 GM/50 ML SYRINGE IV ONE (19:18)
[2019-10-20] MEDS ORDERED: ONDANSETRON 4 MG/2 ML VIAL ONE (19:34)
[2019-10-20] MEDS ORDERED: GLUCAGON 1 MG VIAL IM PRN (19:51)
[2019-10-20] MEDS ORDERED: DEXTROSE 50% 25 GM/50 ML VIAL IV PRN (19:51)
[2019-10-20] MEDS ORDERED: ONDANSETRON 4 MG/2 ML VIAL IV STA (19:56)
[2019-10-20] MEDS: ENOXAPARIN 30 MG/0.3 ML SYRINGE SUBCUT SCH (21:16)
[2019-10-20] MEDS: SODIUM CHLORIDE 0.45% 1,000 ML IV SCH (21:16)
[2019-10-20] MEDS: carvediloL 6.25 MG TABLET PO SCH (21:16)
[2019-10-20] MEDS: ATORVASTATIN 40 MG TABLET PO SCH (21:16)
[2019-10-21 08:05] LABS: Basophils % 0.4 % (0.0-0.8); Eosinophils % 0.2 % (0.00-10.9); Hematocrit 26.5 VOL% (42.0-52.0); Hemoglobin 8.5 GM/DL (14.0-18.0); Immature Granulocytes % 0.4 %; Immature Granulocytes Absolute 0.02 #; Lymphocytes # 0.8 10*3/uL (1.4-4.0); Lymphocytes % 15.9 % (21.2-54.2); Mean Corpuscular HGB Conc 32.1 GM/DL (32-36); Mean Corpuscular Volume 87.2 FL (87-102); Mean Platelet Volume 9.8 FL (9.6-12.0); Monocytes % 10.2 % (1.7-12.7); Neutrophils % 72.9 % (38.7-73.9); Platelet Count 148 T/CUMM (130-400); Red Blood Count 3.04 MC/CUMM (3.8-5.5); Red Cell Distribution Width 17.7 % (9.3-17.3); White Blood Count 5.2 T/CUMM (4-12)
[2019-10-21 08:23] LABS: Calcium 9.1 MG/DL (8.5-10.1); Osmolality,Calculated 296.5 MOS/KG (273-304)
[2019-10-21] MEDS: CLOPIDOGREL 75 MG TABLET PO SCH (08:34)
[2019-10-21] MEDS: ASPIRIN EC 81 MG TABLET PO SCH (08:34)
[2019-10-21] MEDS: ISOSORBIDE MONONITRATE 60 MG TABLET PO SCH (08:34)
[2019-10-21] MEDS: carvediloL 6.25 MG TABLET PO SCH ×2 (08:34→17:48)
[2019-10-21] MEDS ORDERED: PANTOPRAZOLE 20 MG TABLET PO SCH (13:05)
[2019-10-21] MEDS: GABAPENTIN 100 MG CAPSULE PO SCH ×3 (13:22→20:34)
[2019-10-21] MEDS: PANTOPRAZOLE 40 MG TABLET PO SCH (13:22)
[2019-10-21] MEDS: ALUMINUM/MAGNES/SIMETH MAX STR 30 ML UDCUP PO SCH ×2 (13:22→17:48)
[2019-10-21] MEDS: SODIUM CHLORIDE 0.45% 1,000 ML IV SCH (17:48)
[2019-10-21] MEDS: PIPERACILLIN/TAZOBACTAM 3,375 MG in SODIUM CHLORIDE 0.9% 100 ML IV SCH (18:06)
[2019-10-21] MEDS: ENOXAPARIN 30 MG/0.3 ML SYRINGE SUBCUT SCH (20:34)
[2019-10-21] MEDS: ATORVASTATIN 40 MG TABLET PO SCH (20:34)
[2019-10-22] MEDS: PIPERACILLIN/TAZOBACTAM 3,375 MG in SODIUM CHLORIDE 0.9% 100 ML IV SCH ×2 (05:49→17:19)
[2019-10-22 06:01] LABS: Basophils % 0.4 % (0.0-0.8); Eosinophils % 0.9 % (0.00-10.9); Hematocrit 22.1 VOL% (42.0-52.0); Hemoglobin 7.2 GM/DL (14.0-18.0); Immature Granulocytes % 0.4 %; Immature Granulocytes Absolute 0.02 #; Lymphocytes # 0.8 10*3/uL (1.4-4.0); Lymphocytes % 18.4 % (21.2-54.2); Mean Corpuscular HGB Conc 32.6 GM/DL (32-36); Mean Platelet Volume 10.9 FL (9.6-12.0); Monocytes % 10.8 % (1.7-12.7); Neutrophils % 69.1 % (38.7-73.9); Platelet Count 121 T/CUMM (130-400); Red Blood Count 2.57 MC/CUMM (3.8-5.5); Red Cell Distribution Width 17.8 % (9.3-17.3); White Blood Count 4.5 T/CUMM (4-12)
[2019-10-22 06:19] LABS: Albumin 2.6 G/DL (3.4-5.0); Bilirubin,Total 1.1 MG/DL (0.2-1.0); Calcium 8.4 MG/DL (8.5-10.1); Total Protein 6.9 G/DL (6.4-8.3)
[2019-10-22] MEDS ORDERED: SODIUM CHLORIDE 0.9% 1,000 ML IV PRN (07:28)
[2019-10-22] MEDS: ASPIRIN EC 81 MG TABLET PO SCH (09:00)
[2019-10-22] MEDS: ISOSORBIDE MONONITRATE 60 MG TABLET PO SCH (09:00)
[2019-10-22] MEDS: CLOPIDOGREL 75 MG TABLET PO SCH (09:00)
[2019-10-22] MEDS: GABAPENTIN 100 MG CAPSULE PO SCH ×3 (09:00→20:53)
[2019-10-22] MEDS: PANTOPRAZOLE 40 MG TABLET PO SCH (09:00)
[2019-10-22] MEDS: ALUMINUM/MAGNES/SIMETH MAX STR 30 ML UDCUP PO SCH ×3 (09:01→17:19)
[2019-10-22] MEDS: carvediloL 6.25 MG TABLET PO SCH ×2 (09:01→16:54)
[2019-10-22] MEDS: SODIUM CHLORIDE 0.45% 1,000 ML IV SCH (12:10)
[2019-10-22 14:34] LABS: Hematocrit 29.2 VOL% (42.0-52.0); Hemoglobin 9.5 GM/DL (14.0-18.0)
[2019-10-22] MEDS: ENOXAPARIN 30 MG/0.3 ML SYRINGE SUBCUT SCH (20:53)
[2019-10-22] MEDS: ATORVASTATIN 40 MG TABLET PO SCH (20:53)
[2019-10-23] MEDS: PIPERACILLIN/TAZOBACTAM 3,375 MG in SODIUM CHLORIDE 0.9% 100 ML IV SCH ×2 (05:18→17:03)
[2019-10-23 06:03] LABS: Basophils % 0.4 % (0.0-0.8); Eosinophils % 0.9 % (0.00-10.9); Hematocrit 26.6 VOL% (42.0-52.0); Hemoglobin 8.6 GM/DL (14.0-18.0); Immature Granulocytes % 0.4 %; Immature Granulocytes Absolute 0.02 #; Lymphocytes # 0.6 10*3/uL (1.4-4.0); Lymphocytes % 13.4 % (21.2-54.2); Mean Corpuscular HGB Conc 32.3 GM/DL (32-36); Mean Corpuscular Volume 86.9 FL (87-102); Monocytes % 11.7 % (1.7-12.7); NRBC # 0.02 10*3/uL; Neutrophils % 73.2 % (38.7-73.9); Platelet Count 120 T/CUMM (130-400); Red Blood Count 3.06 MC/CUMM (3.8-5.5); Red Cell Distribution Width 17.9 % (9.3-17.3); White Blood Count 4.7 T/CUMM (4-12)
[2019-10-23 06:20] LABS: Osmolality,Calculated 291.8 MOS/KG (273-304)
[2019-10-23] MEDS: ASPIRIN EC 81 MG TABLET PO SCH (10:10)
[2019-10-23] MEDS: CLOPIDOGREL 75 MG TABLET PO SCH (10:10)
[2019-10-23] MEDS: MULTIVITAMIN (CENTRUM) TABLET PO SCH (10:10)
[2019-10-23] MEDS: ISOSORBIDE MONONITRATE 60 MG TABLET PO SCH (10:10)
[2019-10-23] MEDS: CHOLECALCIFEROL 1,000 UNIT TABLET PO SCH (10:10)
[2019-10-23] MEDS: ALUMINUM/MAGNES/SIMETH MAX STR 30 ML UDCUP PO SCH ×3 (10:11→17:03)
[2019-10-23] MEDS: carvediloL 6.25 MG TABLET PO SCH ×2 (10:11→17:03)
[2019-10-23] MEDS: PANTOPRAZOLE 40 MG TABLET PO SCH (10:11)
[2019-10-23] MEDS: ENOXAPARIN 30 MG/0.3 ML SYRINGE SUBCUT SCH (20:40)
[2019-10-23] MEDS: ATORVASTATIN 40 MG TABLET PO SCH (21:18)
[2019-10-24] MEDS: PIPERACILLIN/TAZOBACTAM 3,375 MG in SODIUM CHLORIDE 0.9% 100 ML IV SCH ×2 (05:44→16:59)
[2019-10-24] MEDS: ALUMINUM/MAGNES/SIMETH MAX STR 30 ML UDCUP PO SCH ×3 (08:40→16:59)
[2019-10-24 09:01] LABS: Basophils % 0.4 % (0.0-0.8); Eosinophils % 0.9 % (0.00-10.9); Hematocrit 27.1 VOL% (42.0-52.0); Hemoglobin 8.8 GM/DL (14.0-18.0); Immature Granulocytes % 0.2 %; Immature Granulocytes Absolute 0.01 #; Lymphocytes # 0.7 10*3/uL (1.4-4.0); Lymphocytes % 15.2 % (21.2-54.2); Mean Corpuscular HGB Conc 32.5 GM/DL (32-36); Mean Corpuscular Volume 87.7 FL (87-102); Mean Platelet Volume 10.8 FL (9.6-12.0); Monocytes % 12.6 % (1.7-12.7); NRBC # 0.02 10*3/uL; Neutrophils % 70.7 % (38.7-73.9); Platelet Count 115 T/CUMM (130-400); Red Blood Count 3.09 MC/CUMM (3.8-5.5); Red Cell Distribution Width 18.6 % (9.3-17.3); White Blood Count 4.6 T/CUMM (4-12)
[2019-10-24 09:11] LABS: Calcium 8.1 MG/DL (8.5-10.1)
[2019-10-24] MEDS ORDERED: SODIUM POLYSTYRENE SULFATE 15 GM/60 ML BOTTLE PO ONE (09:51)
[2019-10-24] MEDS: ASPIRIN EC 81 MG TABLET PO SCH (10:15)
[2019-10-24] MEDS: PANTOPRAZOLE 40 MG TABLET PO SCH (10:15)
[2019-10-24] MEDS: CHOLECALCIFEROL 1,000 UNIT TABLET PO SCH (10:15)
[2019-10-24] MEDS: carvediloL 6.25 MG TABLET PO SCH ×2 (10:15→16:59)
[2019-10-24] MEDS: ISOSORBIDE MONONITRATE 60 MG TABLET PO SCH (10:15)
[2019-10-24] MEDS: MULTIVITAMIN (CENTRUM) TABLET PO SCH (10:15)
[2019-10-24] MEDS: ENOXAPARIN 30 MG/0.3 ML SYRINGE SUBCUT SCH (21:02)
[2019-10-24] MEDS: ATORVASTATIN 40 MG TABLET PO SCH (21:02)
[2019-10-24] MEDS: ALBUMIN 25% 12.5 GM in PREMIX 1 EACH IV SCH (21:02)
[2019-10-25] MEDS: ALBUMIN 25% 12.5 GM in PREMIX 1 EACH IV SCH ×3 (05:00→21:46)
[2019-10-25] MEDS: PIPERACILLIN/TAZOBACTAM 3,375 MG in SODIUM CHLORIDE 0.9% 100 ML IV SCH ×2 (05:32→17:25)
[2019-10-25 06:17] LABS: Basophils % 0.3 % (0.0-0.8); Eosinophils # 0.1 10*3/uL (0.0-0.87); Eosinophils % 1.4 % (0.00-10.9); Hematocrit 27.8 VOL% (42.0-52.0); Hemoglobin 8.9 GM/DL (14.0-18.0); Immature Granulocytes % 0.3 %; Immature Granulocytes Absolute 0.01 #; Lymphocytes # 0.3 10*3/uL (1.4-4.0); Lymphocytes % 9.1 % (21.2-54.2); Mean Platelet Volume 11.5 FL (9.6-12.0); Monocytes % 12.2 % (1.7-12.7); Neutrophils % 76.7 % (38.7-73.9); Platelet Count 109 T/CUMM (130-400); Red Blood Count 3.16 MC/CUMM (3.8-5.5); Red Cell Distribution Width 19.3 % (9.3-17.3); White Blood Count 3.5 T/CUMM (4-12)
[2019-10-25 06:53] LABS: Calcium 8.4 MG/DL (8.5-10.1); Osmolality,Calculated 293.7 MOS/KG (273-304)
[2019-10-25] MEDS: ALUMINUM/MAGNES/SIMETH MAX STR 30 ML UDCUP PO SCH ×3 (08:04→17:25)
[2019-10-25] MEDS: MULTIVITAMIN (CENTRUM) TABLET PO SCH (08:04)
[2019-10-25] MEDS: ASPIRIN EC 81 MG TABLET PO SCH (08:04)
[2019-10-25] MEDS: ISOSORBIDE MONONITRATE 60 MG TABLET PO SCH (08:04)
[2019-10-25] MEDS: CHOLECALCIFEROL 1,000 UNIT TABLET PO SCH (08:05)
[2019-10-25] MEDS: PANTOPRAZOLE 40 MG TABLET PO SCH (08:05)
[2019-10-25] MEDS: carvediloL 6.25 MG TABLET PO SCH ×2 (08:14→17:25)
[2019-10-25] MEDS: ENOXAPARIN 30 MG/0.3 ML SYRINGE SUBCUT SCH (21:40)
[2019-10-25] MEDS: ATORVASTATIN 40 MG TABLET PO SCH (21:40)
[2019-10-26] MEDS: ALBUMIN 25% 12.5 GM in PREMIX 1 EACH IV SCH ×2 (04:58→13:35)
[2019-10-26] MEDS: PIPERACILLIN/TAZOBACTAM 3,375 MG in SODIUM CHLORIDE 0.9% 100 ML IV SCH ×2 (05:58→17:29)
[2019-10-26 07:28] LABS: Basophils % 0.2 % (0.0-0.8); Eosinophils % 0.7 % (0.00-10.9); Hematocrit 26.4 VOL% (42.0-52.0); Hemoglobin 8.5 GM/DL (14.0-18.0); Immature Granulocytes % 0.2 %; Immature Granulocytes Absolute 0.01 #; Lymphocytes # 0.7 10*3/uL (1.4-4.0); Lymphocytes % 16.2 % (21.2-54.2); Mean Corpuscular HGB Conc 32.2 GM/DL (32-36); Mean Platelet Volume 11.7 FL (9.6-12.0); Monocytes % 10.5 % (1.7-12.7); Neutrophils % 72.2 % (38.7-73.9); Platelet Count 104 T/CUMM (130-400); Red Cell Distribution Width 19.3 % (9.3-17.3); White Blood Count 4.2 T/CUMM (4-12)
[2019-10-26 07:37] LABS: Calcium 8.6 MG/DL (8.5-10.1); Osmolality,Calculated 290.8 MOS/KG (273-304)
[2019-10-26] MEDS: carvediloL 6.25 MG TABLET PO SCH ×2 (08:48→17:29)
[2019-10-26] MEDS: CHOLECALCIFEROL 1,000 UNIT TABLET PO SCH (08:48)
[2019-10-26] MEDS: ALUMINUM/MAGNES/SIMETH MAX STR 30 ML UDCUP PO SCH ×3 (08:48→17:29)
[2019-10-26] MEDS: PANTOPRAZOLE 40 MG TABLET PO SCH (08:49)
[2019-10-26] MEDS: ASPIRIN EC 81 MG TABLET PO SCH (08:49)
[2019-10-26] MEDS: MULTIVITAMIN (CENTRUM) TABLET PO SCH (08:50)
[2019-10-26] MEDS: ISOSORBIDE MONONITRATE 60 MG TABLET PO SCH (09:23)
[2019-10-26] MEDS: ENOXAPARIN 30 MG/0.3 ML SYRINGE SUBCUT SCH (21:39)
[2019-10-26] MEDS: ATORVASTATIN 40 MG TABLET PO SCH (21:39)
[2019-10-27] MEDS: PIPERACILLIN/TAZOBACTAM 3,375 MG in SODIUM CHLORIDE 0.9% 100 ML IV SCH ×2 (05:53→17:52)
[2019-10-27 06:32] LABS: Basophils % 0.4 % (0.0-0.8); Eosinophils % 0.4 % (0.00-10.9); Hematocrit 27.4 VOL% (42.0-52.0); Hemoglobin 8.5 GM/DL (14.0-18.0); Immature Granulocytes % 0.6 %; Immature Granulocytes Absolute 0.03 #; Lymphocytes # 0.7 10*3/uL (1.4-4.0); Lymphocytes % 13.5 % (21.2-54.2); Mean Corpuscular Volume 90.7 FL (87-102); Mean Platelet Volume 11.4 FL (9.6-12.0); Monocytes % 9.8 % (1.7-12.7); Neutrophils % 75.3 % (38.7-73.9); Platelet Count 100 T/CUMM (130-400); Red Blood Count 3.02 MC/CUMM (3.8-5.5); Red Cell Distribution Width 19.5 % (9.3-17.3); White Blood Count 5.1 T/CUMM (4-12)
[2019-10-27 07:11] LABS: Calcium 8.3 MG/DL (8.5-10.1); Osmolality,Calculated 298.3 MOS/KG (273-304)
[2019-10-27] MEDS: CHOLECALCIFEROL 1,000 UNIT TABLET PO SCH (09:22)
[2019-10-27] MEDS: PANTOPRAZOLE 40 MG TABLET PO SCH (09:23)
[2019-10-27] MEDS: carvediloL 6.25 MG TABLET PO SCH ×2 (09:23→17:53)
[2019-10-27] MEDS: ISOSORBIDE MONONITRATE 60 MG TABLET PO SCH (09:23)
[2019-10-27] MEDS: ALUMINUM/MAGNES/SIMETH MAX STR 30 ML UDCUP PO SCH ×3 (09:23→17:53)
[2019-10-27] MEDS: ASPIRIN EC 81 MG TABLET PO SCH (09:23)
[2019-10-27] MEDS: MULTIVITAMIN (CENTRUM) TABLET PO SCH (09:23)
[2019-10-27] MEDS: ENOXAPARIN 30 MG/0.3 ML SYRINGE SUBCUT SCH (21:08)
[2019-10-27] MEDS: ATORVASTATIN 40 MG TABLET PO SCH (21:08)
[2019-10-28] MEDS: PIPERACILLIN/TAZOBACTAM 3,375 MG in SODIUM CHLORIDE 0.9% 100 ML IV SCH ×2 (05:05→18:32)
[2019-10-28] MEDS ORDERED: DEXTROSE 5% NACL 0.45% 1,000 ML IV SCH (08:30)
[2019-10-28] MEDS: MULTIVITAMIN (CENTRUM) TABLET PO SCH (09:32)
[2019-10-28] MEDS: ASPIRIN EC 81 MG TABLET PO SCH (09:32)
[2019-10-28] MEDS: ALUMINUM/MAGNES/SIMETH MAX STR 30 ML UDCUP PO SCH ×3 (09:32→18:33)
[2019-10-28] MEDS: PANTOPRAZOLE 40 MG TABLET PO SCH (09:32)
[2019-10-28] MEDS: carvediloL 6.25 MG TABLET PO SCH ×2 (09:33→18:33)
[2019-10-28] MEDS: CHOLECALCIFEROL 1,000 UNIT TABLET PO SCH (09:33)
[2019-10-28] MEDS: ISOSORBIDE MONONITRATE 60 MG TABLET PO SCH (09:33)
[2019-10-28] MEDS: ATORVASTATIN 40 MG TABLET PO SCH (21:20)
[2019-10-28] MEDS: ENOXAPARIN 30 MG/0.3 ML SYRINGE SUBCUT SCH (21:20)
[2019-10-29] MEDS: PIPERACILLIN/TAZOBACTAM 3,375 MG in SODIUM CHLORIDE 0.9% 100 ML IV SCH (05:20)
[2019-10-29 05:45] LABS: INR 1.3; PT Patient Result 13.9 SECS (9.8-11.9)
[2019-10-29 06:00] LABS: Basophils % 0.4 % (0.0-0.8); Eosinophils # 0.1 10*3/uL (0.0-0.87); Eosinophils % 1.1 % (0.00-10.9); Hematocrit 28.1 VOL% (42.0-52.0); Hemoglobin 8.8 GM/DL (14.0-18.0); Immature Granulocytes % 0.4 %; Immature Granulocytes Absolute 0.02 #; Lymphocytes # 0.9 10*3/uL (1.4-4.0); Mean Corpuscular HGB Conc 31.3 GM/DL (32-36); Mean Corpuscular Volume 91.2 FL (87-102); Monocytes % 12.7 % (1.7-12.7); Neutrophils % 66.4 % (38.7-73.9); Platelet Count 108 T/CUMM (130-400); Red Blood Count 3.08 MC/CUMM (3.8-5.5); Red Cell Distribution Width 19.8 % (9.3-17.3); White Blood Count 4.6 T/CUMM (4-12)
[2019-10-29] MEDS ORDERED: PIPERACILLIN/TAZOBACTAM 3,375 MG in SODIUM CHLORIDE 0.9% 100 ML IV ONE (06:00)
[2019-10-29 06:26] LABS: Calcium 8.7 MG/DL (8.5-10.1); Osmolality,Calculated 295.7 MOS/KG (273-304)
[2019-10-29] MEDS: ALUMINUM/MAGNES/SIMETH MAX STR 30 ML UDCUP PO SCH ×3 (09:11→17:17)
[2019-10-29] MEDS: PANTOPRAZOLE 40 MG TABLET PO SCH (09:13)
[2019-10-29] MEDS: ASPIRIN EC 81 MG TABLET PO SCH (09:13)
[2019-10-29] MEDS: MULTIVITAMIN (CENTRUM) TABLET PO SCH (09:13)
[2019-10-29] MEDS: carvediloL 6.25 MG TABLET PO SCH ×2 (09:13→17:16)
[2019-10-29] MEDS: ISOSORBIDE MONONITRATE 60 MG TABLET PO SCH (09:14)
[2019-10-29] MEDS: CHOLECALCIFEROL 1,000 UNIT TABLET PO SCH (09:18)
[2019-10-29 10:11] LABS: % Iron Saturation 26.1 % (18-50)
[2019-10-29 11:33] LABS: Apearance,Urine Slightly Hazy (Clear); Bacteria,Urine Occasional /HPF (Few); Bilirubin,Urine Negative (Negative); Blood, Urine Negative (Negative); Glucose,Urine (UA) Negative (Negative); Ketones,Urine Negative (Negative); Mucus,Urine Occasional /LPF (Occasional); Nitrite,Urine Negative (Negative); Protein,Urine 30 MG/DL; RBC,Urine <1 /HPF (0-4); Squamous Epithelial Cell,Urine Occasional /HPF (0-10); Urine Specific Gravity 1.025 (1.001-1.035); Urine Urobilinogen < 2.0 EU/DL (0.2-1.0); WBC,Urine 1 /HPF (0-6)
[2019-10-29 11:37] LABS: Urine Color Yellow (Yellow)
[2019-10-29] MEDS: ATORVASTATIN 40 MG TABLET PO SCH (20:28)
[2019-10-29] MEDS ORDERED: ONDANSETRON 4 MG/2 ML VIAL IV PRN (23:30)
[2019-10-30] MEDS: CHOLECALCIFEROL 1,000 UNIT TABLET PO SCH (08:04)
[2019-10-30] MEDS: ISOSORBIDE MONONITRATE 60 MG TABLET PO SCH (08:04)
[2019-10-30] MEDS: PANTOPRAZOLE 40 MG TABLET PO SCH (08:04)
[2019-10-30] MEDS: ASPIRIN EC 81 MG TABLET PO SCH (08:04)
[2019-10-30] MEDS: MULTIVITAMIN (CENTRUM) TABLET PO SCH (08:04)
[2019-10-30] MEDS: ALUMINUM/MAGNES/SIMETH MAX STR 30 ML UDCUP PO SCH ×3 (08:04→17:06)
[2019-10-30] MEDS: carvediloL 6.25 MG TABLET PO SCH ×2 (08:20→16:46)
[2019-10-30 08:51] LABS: Bilirubin,Total 0.8 MG/DL (0.2-1.0); Calcium 8.6 MG/DL (8.5-10.1); Osmolality,Calculated 300.3 MOS/KG (273-304); Total Protein 7.5 G/DL (6.4-8.3)
[2019-10-30] MEDS ORDERED: HEPARIN 5,000 UNIT/1 ML VIAL SUBCUT SCH (09:00)
[2019-10-30] MEDS ORDERED: DIAZEPAM 5 MG TABLET PO ONE (10:11)
[2019-10-30] MEDS ORDERED: SODIUM POLYSTYRENE SULFATE 15 GM/60 ML BOTTLE PO STA (10:52)
[2019-10-30] MEDS: LACTULOSE 20 GM/30 ML UDCUP PO SCH (18:30)
[2019-10-30] MEDS: ATORVASTATIN 40 MG TABLET PO SCH (20:22)
[2019-10-31 05:38] LABS: Basophils % 0.2 % (0.0-0.8); Eosinophils % 0.5 % (0.00-10.9); Hematocrit 24.5 VOL% (42.0-52.0); Hemoglobin 7.6 GM/DL (14.0-18.0); Immature Granulocytes % 0.5 %; Immature Granulocytes Absolute 0.03 #; Lymphocytes # 0.7 10*3/uL (1.4-4.0); Lymphocytes % 10.5 % (21.2-54.2); Mean Corpuscular Volume 91.8 FL (87-102); Monocytes % 9.5 % (1.7-12.7); Neutrophils % 78.8 % (38.7-73.9); Platelet Count 85 T/CUMM (130-400); Red Blood Count 2.67 MC/CUMM (3.8-5.5); Red Cell Distribution Width 20.2 % (9.3-17.3); White Blood Count 6.2 T/CUMM (4-12)
[2019-10-31 06:05] LABS: Albumin 2.6 G/DL (3.4-5.0); Bilirubin,Total 1.2 MG/DL (0.2-1.0); Calcium 8.7 MG/DL (8.5-10.1); Osmolality,Calculated 299.3 MOS/KG (273-304); Total Protein 6.4 G/DL (6.4-8.3)
[2019-10-31 06:09] LABS: Burr Cells Slight; Hypochromasia 2+; Ovalocytes Slight; Platelet Estimate Decreased
[2019-10-31] MEDS: PANTOPRAZOLE 40 MG TABLET PO SCH (08:49)
[2019-10-31] MEDS: LACTULOSE 20 GM/30 ML UDCUP PO SCH (08:49)
[2019-10-31] MEDS: CHOLECALCIFEROL 1,000 UNIT TABLET PO SCH (08:49)
[2019-10-31] MEDS: ISOSORBIDE MONONITRATE 60 MG TABLET PO SCH (08:50)
[2019-10-31] MEDS: carvediloL 6.25 MG TABLET PO SCH ×2 (08:50→17:05)
[2019-10-31] MEDS: ASPIRIN EC 81 MG TABLET PO SCH (08:50)
[2019-10-31] MEDS: ALUMINUM/MAGNES/SIMETH MAX STR 30 ML UDCUP PO SCH ×3 (08:51→17:05)
[2019-10-31] MEDS: MEGESTROL 400 MG/10 ML UDCUP PO SCH (10:12)
[2019-10-31] MEDS: MIRTAZAPINE 15 MG TABLET PO SCH (20:57)
[2019-10-31] MEDS: HEPARIN 5,000 UNIT/1 ML VIAL SUBCUT SCH (20:57)
[2019-10-31] MEDS: ATORVASTATIN 40 MG TABLET PO SCH (20:57)
[2019-11-01 05:11] LABS: Basophils % 0.4 % (0.0-0.8); Eosinophils # 0.1 10*3/uL (0.0-0.87); Eosinophils % 1.4 % (0.00-10.9); Hematocrit 22.2 VOL% (42.0-52.0); Hemoglobin 7.1 GM/DL (14.0-18.0); Immature Granulocytes % 0.4 %; Immature Granulocytes Absolute 0.02 #; Lymphocytes # 0.9 10*3/uL (1.4-4.0); Lymphocytes % 16.5 % (21.2-54.2); Mean Corpuscular Volume 90.2 FL (87-102); Mean Platelet Volume 11.1 FL (9.6-12.0); Monocytes % 12.3 % (1.7-12.7); Platelet Count 89 T/CUMM (130-400); Red Blood Count 2.46 MC/CUMM (3.8-5.5); Red Cell Distribution Width 19.9 % (9.3-17.3); White Blood Count 5.6 T/CUMM (4-12)
[2019-11-01 05:44] LABS: Calcium 8.5 MG/DL (8.5-10.1); Osmolality,Calculated 301.1 MOS/KG (273-304)
[2019-11-01 05:58] LABS: Hypochromasia 2+; Lymphocytes 21 % (20-55); Nucleated Red Blood Cells 1 (0-5); Ovalocytes Slight; Platelet Estimate Decreased; Segmented Neutrophils 70 % (50-85); Total Cells Counted 100
[2019-11-01 05:59] LABS: Microcytosis 1+
[2019-11-01] MEDS: CHOLECALCIFEROL 1,000 UNIT TABLET PO SCH (08:50)
[2019-11-01] MEDS: PANTOPRAZOLE 40 MG TABLET PO SCH (08:50)
[2019-11-01] MEDS: ASPIRIN EC 81 MG TABLET PO SCH (08:50)
[2019-11-01] MEDS: ISOSORBIDE MONONITRATE 60 MG TABLET PO SCH (08:50)
[2019-11-01] MEDS: LACTULOSE 20 GM/30 ML UDCUP PO SCH ×2 (08:51→20:41)
[2019-11-01] MEDS: ALUMINUM/MAGNES/SIMETH MAX STR 30 ML UDCUP PO SCH ×3 (08:51→18:04)
[2019-11-01] MEDS: carvediloL 6.25 MG TABLET PO SCH ×2 (08:51→18:04)
[2019-11-01] MEDS: MEGESTROL 400 MG/10 ML UDCUP PO SCH (08:51)
[2019-11-01] MEDS: HEPARIN 5,000 UNIT/1 ML VIAL SUBCUT SCH ×2 (08:57→20:42)
[2019-11-01] MEDS ORDERED: LACTULOSE 20 GM/30 ML UDCUP PO SCH (11:30)
[2019-11-01] MEDS ORDERED: SODIUM CHLORIDE 0.9% 1,000 ML IV PRN (14:53)
[2019-11-01] MEDS: MIRTAZAPINE 15 MG TABLET PO SCH (20:41)
[2019-11-01] MEDS: ATORVASTATIN 40 MG TABLET PO SCH (20:42)
[2019-11-02 06:01] LABS: Basophils % 0.5 % (0.0-0.8); Eosinophils # 0.1 10*3/uL (0.0-0.87); Eosinophils % 0.8 % (0.00-10.9); Hematocrit 28.4 VOL% (42.0-52.0); Immature Granulocytes % 0.3 %; Immature Granulocytes Absolute 0.02 #; Lymphocytes # 0.9 10*3/uL (1.4-4.0); Lymphocytes % 14.3 % (21.2-54.2); Mean Corpuscular HGB Conc 31.7 GM/DL (32-36); Mean Corpuscular Volume 91.3 FL (87-102); Mean Platelet Volume 11.8 FL (9.6-12.0); Monocytes % 10.7 % (1.7-12.7); NRBC # 0.02 10*3/uL; Neutrophils % 73.4 % (38.7-73.9); Platelet Count 120 T/CUMM (130-400); Red Blood Count 3.11 MC/CUMM (3.8-5.5); Red Cell Distribution Width 19.5 % (9.3-17.3); White Blood Count 6.1 T/CUMM (4-12)
[2019-11-02 06:18] LABS: Calcium 9.2 MG/DL (8.5-10.1); Osmolality,Calculated 299.3 MOS/KG (273-304)
[2019-11-02] MEDS ORDERED: SODIUM POLYSTYRENE SULFATE 15 GM/60 ML BOTTLE PO ONE (07:36)
[2019-11-02] MEDS: MEGESTROL 400 MG/10 ML UDCUP PO SCH (08:43)
[2019-11-02] MEDS: PANTOPRAZOLE 40 MG TABLET PO SCH (08:43)
[2019-11-02] MEDS: ALUMINUM/MAGNES/SIMETH MAX STR 30 ML UDCUP PO SCH ×2 (08:43→14:59)
[2019-11-02] MEDS: ASPIRIN EC 81 MG TABLET PO SCH (08:43)
[2019-11-02] MEDS: LACTULOSE 20 GM/30 ML UDCUP PO SCH ×2 (08:43→14:59)
[2019-11-02] MEDS: HEPARIN 5,000 UNIT/1 ML VIAL SUBCUT SCH (08:43)
[2019-11-02] MEDS: ISOSORBIDE MONONITRATE 60 MG TABLET PO SCH (08:43)
[2019-11-02] MEDS: CHOLECALCIFEROL 1,000 UNIT TABLET PO SCH (08:43)
[2019-11-02] MEDS: carvediloL 6.25 MG TABLET PO SCH (08:43)
[2019-11-02 11:42] VITALS: BP 130/69
== END 2019-11-02 15:56 | disposition hospice, home (50) | DRG 435 ==
LOC: N.ED 17:55 → SUATTDRO 19:51 → N.EDINP 19:51 → N.TELES 20:34
PROVIDERS: ADMIT Internal Medicine; ATTEND Internal Medicine